=== PATIENT | female | born 1960 | race Caucasian/White ===

== ENCOUNTER 2017-07-01 11:37 | Emergency (ER) | payer OTHER ==
[2017-07-01 12:05] VITALS: BMI 20.7
[2017-07-01] MEDS ORDERED: MAG HYDROX/AL HYDROX/SIMETH 30 ML UNIT-DOSE CUP PO ONE (13:48)
[2017-07-01] MEDS ORDERED: SODIUM CHLORIDE 1,000 ML IV STA (13:48)
[2017-07-01] MEDS ORDERED: ONDANSETRON 4 MG/2 ML VIAL IVPB ONE (13:48)
[2017-07-01] MEDS ORDERED: ACETAMINOPHEN 325 MG TABLET (FP) PO ONE (13:49)
[2017-07-01] MEDS ORDERED: FAMOTIDINE IV 20 MG/12 ML VIAL IVPUSH ONE (13:49)
[2017-07-01 14:21] LABS: BASO % 0.2 % (0-2.0); EOS % 0.3 % (0-4.5); HEMOGLOBIN 13.2 GM/dL (10.7-15.3); LYMPH % 23.1 % (8-40); MCH 29.3 pg (25.7-33.7); MCHC 32.2 g/dl (32.0-36.0); MEAN CELL VOLUME 90.8 fl (80-96); MEAN PLT VOLUME 9.9 fl (7.5-11.1); MONO % 10.1 % (3.8-10.2); NEUT % 66.3 % (42.8-82.8); PLATELET COUNT 220 K/MM3 (134-434); RBC 4.51 M/mm3 (3.60-5.2); RDW 13.2 % (11.6-15.6); WHITE BLOOD COUNT 4.9 K/mm3 (4.0-10.0)
[2017-07-01] MEDS ORDERED: MAG HYDROX/AL HYDROX/SIMETH 30 ML UNIT-DOSE CUP ONE (14:36)
[2017-07-01] MEDS ORDERED: FAMOTIDINE 20 MG/50 ML IVPB 20 MG/50 ML MG IVPB ONE (14:36)
[2017-07-01] MEDS ORDERED: ACETAMINOPHEN 325 MG TABLET (FP) ONE (14:36)
[2017-07-01] MEDS ORDERED: ONDANSETRON 4 MG/2 ML VIAL ONE (14:36)
[2017-07-01 14:42] LABS: INR 1.11 (0.82-1.09); PROTHROMBIN TIME (PATIENT) 12.5 SEC (9.98-11.88)
[2017-07-01 14:45] LABS: ACTIVATED PTT 40.3 SECONDS (26.9-34.4)
--- NOTE | 2017-07-01 14:48 | PDOC ---
History of Present Illness - General Exam Limitations: No Limitations - History of Present Illness Initial Comments: 07/01/17 15:27 The patient is a year old female, with a significant past medical history of hypothyroidism and GERD, who presents to the emergency department with, two days of abdominal pain, emesis, and loose stool. She reports her pain to have begun after eating sushi. She describes her abdominal pain as an intense achy, cramp which waxes and wanes. She reports decreased oral intake. She reports 3 episodes of large volume emesis. Secondary to her symptoms, she reports a subjective fever. She reports taking TUMS, without relief. She denies recent chills, headache or dizziness. She denies recent constipation. She denies recent dysuria, frequency, urgency or hematuria. She denies recent chest pain or shortness of breath. Allergies: NKA Past surgical history: None reported. Social history: Nonsmoker. Denies EtOH use and recreational drug use. Primary Care Physician: Dr. Barby Mckeon <Willem Santana - Last Filed: 07/01/17 15:26> - General History Source: Patient Exam Limitations: No Limitations <Pineda Smith - Last Filed: 07/01/17 16:11> - General Chief Complaint: Pain Stated Complaint: FEVER,ABD PAIN Time Seen by Provider: 07/01/17 13:20 Past History <Willem Santana - Last Filed: 07/01/17 15:26> - Past Medical History COPD: No Thyroid Disease: Yes - Surgical History Appendectomy: Yes - Suicide/Smoking/Psychosocial Hx Smoking Status: No Smoking History: Never smoked Have you smoked in the past 12 months: No Number of Cigarettes Smoked Daily: 0 Hx Alcohol Use: Yes (SOCIAL) Drug/Substance Use Hx: No Substance Use Type: None <Pineda Smith - Last Filed: 07/01/17 16:11> - Past Medical History Allergies/Adverse Reactions: Allergies Allergy/AdvReac Type Severity Reaction Status Date / Time No Known Allergies Allergy Verified 07/01/17 12:05 Home Medications: Ambulatory Orders Levothyroxine [Synthroid -] 100 mcg PO DAILY 07/26/15 Famotidine [Pepcid] 20 mg PO BID PRN #20 tablet 07/01/17 Mag Hydrox/Al Hydrox/Simeth [Mylanta Suspension -] 30 ml PO Q6H PRN #1 bottle Naproxen 500 mg PO BID PRN #20 tablet 07/01/17 Ondansetron HCl [Zofran] 4 mg PO Q8H PRN #15 tablet 07/01/17 Review of Systems - Review of Systems Able to Perform ROS?: Yes Comments:: 07/01/17 15:27 GENERAL/CONSTITUTIONAL: +Subjective fever. No chills. No weakness. HEAD, EYES, EARS, NOSE AND THROAT: No change in vision. No ear pain or discharge. No sore throat. CARDIOVASCULAR: No chest pain or shortness of breath. RESPIRATORY: No cough, wheezing, or hemoptysis. GASTROINTESTINAL: +Epigastric tenderness. +Emesis. No nausea, diarrhea or constipation. GENITOURINARY: No dysuria, frequency, or change in urination. MUSCULOSKELETAL: No joint or muscle swelling or pain. No neck or back pain. SKIN: No rash NEUROLOGIC: No headache, vertigo, loss of consciousness, or change in strength/ sensation. ENDOCRINE: No increased thirst. No abnormal weight change. HEMATOLOGIC/LYMPHATIC: No anemia, easy bleeding, or history of blood clots. ALLERGIC/IMMUNOLOGIC: No hives or skin allergy. All Other Systems: Reviewed and Negative <Willem Santana - Last Filed: 07/01/17 15:26> *Physical Exam - Vital Signs Last Vital Signs Temp Pulse Resp BP Pulse Ox 99.0 F 87 20 115/68 99 07/01/17 12:02 07/01/17 12:02 07/01/17 12:02 07/01/17 12:02 07/01/17 12:02 - Physical Exam Comments: 07/01/17 15:27 GENERAL: Awake, alert, and fully oriented, in no acute distress HEAD: No signs of trauma EYES: PERRLA, EOMI, sclera anicteric, conjunctiva clear ENT: Auricles normal inspection, hearing grossly normal, nares patent, oropharynx clear without exudates. Moist mucosa NECK: Normal ROM, supple, no lymphadenopathy, JVD, or masses LUNGS: Breath sounds equal, clear to auscultation bilaterally. No wheezes, and no crackles HEART: Regular rate and rhythm, normal S1 and S2, no murmurs, rubs or gallops ABDOMEN: +Epigastric tenderness. Soft, normoactive bowel sounds. No guarding, no rebound. No masses EXTREMITIES: Normal range of motion, no edema. No clubbing or cyanosis. No cords, erythema, or tenderness NEUROLOGICAL: Cranial nerves II through XII grossly intact. Normal speech, normal gait SKIN: Warm, Dry, normal turgor, no rashes or lesions noted. <Willem Santana - Last Filed: 07/01/17 15:26> - Vital Signs Last Vital Signs Temp Pulse Resp BP Pulse Ox 99.0 F 87 20 115/68 99 07/01/17 12:02 07/01/17 12:02 07/01/17 12:02 07/01/17 12:02 07/01/17 12:02 <Pineda Smith - Last Filed: 07/01/17 16:11> ED Treatment Course - LABORATORY CBC & Chemistry Diagram: 07/01/17 14:13 07/01/17 14:13 - ADDITIONAL ORDERS Additional order review: Laboratory Results 07/01/17 07/01/17 14:13 14:13 PT with INR 12.50 H INR 1.11 PTT (Actin FS) 40.3 H Sodium 139 Potassium 4.0 Chloride 102 Carbon Dioxide 27 Anion Gap 10 BUN 10 Creatinine 0.6 Creat Clearance w eGFR > 60 Random Glucose 107 H Calcium 8.4 L Phosphorus 3.8 Magnesium 2.2 Total Bilirubin 0.4 D AST 17 D ALT 19 Alkaline Phosphatase 93 Creatine Kinase 55 Troponin I < 0.02 Total Protein 7.7 Albumin 4.0 Lipase 82 07/01/17 14:13 RBC 4.51 MCV 90.8 MCHC 32.2 RDW 13.2 MPV 9.9 Neutrophils % 66.3 Lymphocytes % 23.1 D Monocytes % 10.1 D Eosinophils % 0.3 D Basophils % 0.2 - Medications Given in the ED: ED Medications Discontinued Medications Generic Name Dose Route Start Last Admin Trade Name Freq PRN Reason Stop Dose Admin Acetaminophen 650 mg 07/01/17 13:49 07/01/17 14:45 Tylenol - PO 07/01/17 13:50 650 mg ONCE ONE Administration Al Hydroxide/Mg Hydroxide 30 ml 07/01/17 13:48 07/01/17 14:45 Mylanta Oral Suspension - PO 07/01/17 13:49 30 ml ONCE ONE Administration Famotidine 20 mg in 12 mls @ 144 mls/hr 07/01/17 13:49 07/01/17 14:45 Pepcid 20 Mg/12 Ml Push IVPUSH 07/01/17 13:53 144 mls/hr ONCE ONE Administration Sodium Chloride 1,000 mls @ 1,000 mls/hr 07/01/17 13:48 07/01/17 14:45 Normal Saline - IV 07/01/17 14:47 1,000 mls/hr ASDIR STA Administration Ondansetron HCl 4 mg 07/01/17 13:48 07/01/17 14:45 Zofran Injection IVPB 07/01/17 13:49 4 mg ONCE ONE Administration <Willem Santana - Last Filed: 07/01/17 15:26> - LABORATORY CBC & Chemistry Diagram: 07/01/17 14:13 07/01/17 14:13 - ADDITIONAL ORDERS Additional order review: 07/01/17 14:13 RBC 4.51 MCV 90.8 MCHC 32.2 RDW 13.2 MPV 9.9 Neutrophils % 66.3 Lymphocytes % 23.1 D Monocytes % 10.1 D Eosinophils % 0.3 D Basophils % 0.2 <Pineda Smith - Last Filed: 07/01/17 16:11> Medical Decision Making - Medical Decision Making 07/01/17 14:41 A portion of this note was documented by scribe services under my direction. I have reviewed the details of the note, within reason, and agree with the documentation with the following case summary and management plan written by me. Patient treated in the ED. Nursing notes are reviewed and incorporated into the medical decision-making. Vital signs reviewed. Peripheral IV access obtained by the nurse, laboratory studies are drawn and sent, reviewed and interpreted by myself. Vital Signs Temp Pulse Resp BP Pulse Ox 99.0 F 87 20 115/68 99 07/01/17 12:02 07/01/17 12:02 07/01/17 12:02 07/01/17 12:02 07/01/17 12:02 57-year-old female with history of GERD, hypothyroidism, proximal atrial fibrillation presents with abdominal discomfort, cramping and nausea and vomiting. The patient reports that she has eaten sushi 2 days ago when her symptoms started yesterday. Reports decreased appetite. Denies fevers or chills. I suspect the patient likely has viral gastroenteritis versus food poisoning. We 'll obtain labs, IV fluids, symptom control and reassess. 07/01/17 16:06 CBC, BMP 07/01/17 14:13 07/01/17 14:13 CMP Sodium 139 mmol/L (136-145) 07/01/17 14:13 Potassium 4.0 mmol/L (3.5-5.1) 07/01/17 14:13 Chloride 102 mmol/L (98-107) 07/01/17 14:13 Carbon Dioxide 27 mmol/L (21-32) 07/01/17 14:13 Anion Gap 10 (8-16) 07/01/17 14:13 BUN 10 mg/dL (7-18) 07/01/17 14:13 Creatinine 0.6 mg/dL (0.55-1.02) 07/01/17 14:13 Creat Clearance w eGFR > 60 (>60) 07/01/17 14:13 Random Glucose 107 mg/dL (74-106) H 07/01/17 14:13 Calcium 8.4 mg/dL (8.5-10.1) L 07/01/17 14:13 Phosphorus 3.8 mg/dL (2.5-4.9) 07/01/17 14:13 Magnesium 2.2 mg/dL (1.8-2.4) 07/01/17 14:13 Total Bilirubin 0.4 mg/dL (0.2-1.0) D 07/01/17 14:13 AST 17 U/L (15-37) D 07/01/17 14:13 ALT 19 U/L (12-78) 07/01/17 14:13 Alkaline Phosphatase 93 U/L (45-117) 07/01/17 14:13 Creatine Kinase 55 IU/L (26-192) 07/01/17 14:13 Troponin I < 0.02 ng/ml (0.00-0.05) 07/01/17 14:13 Total Protein 7.7 g/dl (6.4-8.2) 07/01/17 14:13 Albumin 4.0 g/dl (3.4-5.0) 07/01/17 14:13 Lipase 82 U/L (73-393) 07/01/17 14:13 Urine Test Results Urine Color Ltyellow 07/01/17 15:07 Urine Appearance Clear 07/01/17 15:07 Urine pH 6.0 (5.0-8.0) 07/01/17 15:07 Ur Specific [place] 1.008 (1.001-1.035) 07/01/17 15:07 Urine Protein Negative (NEGATIVE) 07/01/17 15:07 Urine Glucose (UA) Negative (NEGATIVE) 07/01/17 15:07 Urine Ketones Negative (NEGATIVE) 07/01/17 15:07 Urine Blood 1+ (NEGATIVE) H 07/01/17 15:07 Urine Nitrite Negative (NEGATIVE) 07/01/17 15:07 Urine Bilirubin Negative (NEGATIVE) 07/01/17 15:07 Ur Leukocyte Esterase Negative (NEGATIVE) 07/01/17 15:07 Ur Epithelial Cells Rare /HPF (FEW) 07/01/17 15:07 Urine Mucus Rare 07/01/17 15:07 Patient reports feeling significantly better. I suspect again that this is likely viral gastritis versus food poisoning. Supportive care and follow-up primary care physician. I discussed the physical exam findings, ancillary test results and final diagnoses with the patient. I answered all of the patient's questions. The patient was satisfied with the care received and felt comfortable with the discharge plan and treatment plan. The patient will call their primary care physician within 24 hours to arrange follow-up and will return to the Emergency Department with any new, persistant or worsening symptoms. <Pineda Smith - Last Filed: 07/01/17 16:11> *DC/Admit/Observation/Transfer - Attestations Scribe Attestion: 07/01/17 15:27 Documentation prepared by Willem Santana, acting as biomedical equipment technician for iPneda Smith MD. <Willem Santana - Last Filed: 07/01/17 15:26> - Discharge Dispostion Admit: No <Pineda Smith - Last Filed: 07/01/17 16:11> Diagnosis at time of Disposition: Gastroenteritis - Discharge Dispostion Disposition: HOME Condition at time of disposition: Improved - Prescriptions Prescriptions: Famotidine [Pepcid] 20 mg PO BID PRN #20 tablet PRN Reason: Abdominal Pain Mag Hydrox/Al Hydrox/Simeth [Mylanta Suspension -] 30 ml PO Q6H PRN #1 bottle PRN Reason: Abdominal Pain Naproxen 500 mg PO BID PRN #20 tablet PRN Reason: Abdominal Pain/Fever Ondansetron HCl [Zofran] 4 mg PO Q8H PRN #15 tablet PRN Reason: Nausea - Referrals Referrals: Barby Mckeon MD [Primary Care Provider] - - Patient Instructions Printed Discharge Instructions: DI for Viral Gastroenteritis -- Adult Additional Instructions: Please drink plenty of fluids and follow up with your doctor. Take your medications as prescribed. It may take several days before your symptoms improve. - Post Discharge Activity Forms/Work/School Notes: Back to Work
[2017-07-01 14:53] LABS: ANION GAP 10 (8-16); BILIRUBIN,TOTAL 0.4 mg/dL (0.2-1.0); BLOOD UREA NITROGEN 10 mg/dL (7-18); CALCIUM 8.4 mg/dL (8.5-10.1); CHLORIDE 102 mmol/L (98-107); CO2 27 mmol/L (21-32); CREATININE 0.6 mg/dL (0.55-1.02); GLUCOSE,RANDOM 107 mg/dL (74-106); LIPASE 82 U/L (73-393); MAGNESIUM 2.2 mg/dL (1.8-2.4); PHOSPHOROUS 3.8 mg/dL (2.5-4.9); SGOT/AST 17 U/L (15-37); SGPT/ALT 19 U/L (12-78); SODIUM 139 mmol/L (136-145)
[2017-07-01 14:56] LABS: ALK PHOS 93 U/L (45-117); TOT PROT 7.7 g/dl (6.4-8.2)
[2017-07-01] MEDS ORDERED: KETOROLAC TROMETHAMINE 30 MG/1 ML VIAL IVPUSH ONE (14:57)
[2017-07-01] MEDS ORDERED: KETOROLAC TROMETHAMINE 30 MG/1 ML VIAL ONE (15:50)
[2017-07-01 15:52] LABS: URINE APPEARANCE CLEAR; URINE BILIRUBIN NEGATIVE (NEGATIVE); URINE BLOOD 1+ (NEGATIVE); URINE COLOR LTYELLOW; URINE GLUCOSE (UA) NEGATIVE (NEGATIVE); URINE KETONE NEGATIVE (NEGATIVE); URINE LEUK ESTERASE NEGATIVE (NEGATIVE); URINE NITRITE NEGATIVE (NEGATIVE); URINE PROTEIN NEGATIVE (NEGATIVE); URINE UROBILINOGEN NEGATIVE mg/dL (0.2-1.0)
[2017-07-01 15:57] LABS: EPI CELLS RARE /HPF (FEW); URINE MUCUS RARE
[2017-07-01 16:32] VITALS: BP 129/89; PULSE 81; TEMP 98.1
== END 2017-07-01 16:32 | disposition home or self-care (01) ==
LOC: JER 11:37
PROC: 3E033GC Introduction of Other Therapeutic Substance into Peripheral Vein, Percutaneous Approach (ICD-10-PCS; principal; 2017-07-01)
PROC: 3E033GC Introduction of Other Therapeutic Substance into Peripheral Vein, Percutaneous Approach (ICD-10-PCS; 2017-07-01)
PROC: 3E0333Z Introduction of Anti-inflammatory into Peripheral Vein, Percutaneous Approach (ICD-10-PCS; 2017-07-01)
DX: K52.9 Noninfective gastroenteritis and colitis, unspecified (principal)
CPT/HCPCS: 36415; 80053; 81003; 81015; 82550; 83690; 83735; 84100; 84484; 85025; 85610; 85730; 87086; 96374; 96375; 99284-25

== ENCOUNTER 2019-07-07 16:29 | Emergency (ER) | payer OTHER ==
--- NOTE | 2019-07-07 16:34 | PDOC ---
Rapid Medical Evaluation Time Seen by Provider: 07/07/19 16:33 Medical Evaluation: Allergies Allergy/AdvReac Type Severity Reaction Status Date / Time No Known Allergies Allergy Verified 07/07/19 16:33 07/07/19 16:34 I performed a brief in-person evaluation of this patient. 59-year-old female with paF (not on AC), HLD, hypothyroidism with 4 days of near right eye not improving with antibiotic ointment, now with pressure sensation and ringing in right ear. Pertinent physical exam findings. PERRL, EOMI. No ophthalmoplegia. Small area of erythema at bridge of nose just medial to right eye I have ordered the following: None Patient to proceed to FT for further evaluation. Discharge Disposition - Diagnosis Cellulitis - Referrals - Patient Instructions - Post Discharge Activity
[2019-07-07 16:37] VITALS: BP 144/68; PULSE 81; TEMP 98.2; BMI 21.9
--- NOTE | 2019-07-07 17:49 | PDOC ---
History of Present Illness - General Chief Complaint: Pain, Acute Stated Complaint: PAIN/FACE/EYES/HEADACHE/R/EAR Time Seen by Provider: 07/07/19 16:33 - History of Present Illness Initial Comments: 07/07/19 17:46 59-year-old female presents for facial pain and developing rash x3 days Past History - Past Medical History Allergies/Adverse Reactions: Allergies Allergy/AdvReac Type Severity Reaction Status Date / Time No Known Allergies Allergy Verified 07/07/19 16:33 Home Medications: Ambulatory Orders Levothyroxine [Synthroid -] 100 mcg PO DAILY 07/26/15 Naproxen 500 mg PO BID PRN #20 tablet 07/01/17 Atorvastatin Ca [Lipitor] 20 mg PO HS 12/13/17 Atorvastatin Calcium [Lipitor] 20 mg PO HS 04/13/19 Cholecalciferol (Vitamin D3) [Vitamin D3] 1 tab PO DAILY 04/13/19 Cyclobenzaprine HCl 5 mg PO TID PRN #6 tablet 04/13/19 Levothyroxine [Synthroid -] 100 mcg PO DAILY 04/13/19 Lidocaine 5% Patch [Lidoderm -] 1 patch TP DAILY #7 patch 04/13/19 Acyclovir [Zovirax -] 800 mg PO 5XD #35 tablet 07/07/19 Cardiac Disorders: Yes (afib) CVA: No COPD: No GI Disorders: Yes (gerd) Hypercholesterolemia: Yes Thyroid Disease: Yes (hypothyroid) - Surgical History Appendectomy: Yes - Immunization History Immunization Up to Date: No - Psycho Social/Smoking Cessation Hx Smoking Status: No Smoking History: Never smoked Have you smoked in the past 12 months: No Number of Cigarettes Smoked Daily: 0 Hx Alcohol Use: No Drug/Substance Use Hx: No Substance Use Type: None Review of Systems - Review of Systems Constitutional: No: Fever Integumentary: Yes: Rash *Physical Exam - Vital Signs Last Vital Signs Temp Pulse Resp BP Pulse Ox 98.2 F 81 18 144/68 99 07/07/19 16:34 07/07/19 16:34 07/07/19 16:34 07/07/19 16:34 07/07/19 16:34 - Physical Exam 07/07/19 17:47 GENERAL: The patient is awake, alert, and fully oriented, in no acute distress. HEAD: Normal with no signs of trauma. EYES: sclera anicteric, conjunctiva clear. ENT: Ears normal tympanic membranes normal oropharynx clear uvula midline; there is a vesicular lesion in the right ear canal NECK: Normal range of motion LUNGS: Breath sounds equal, clear to auscultation bilaterally. No wheezes, and no crackles. HEART: S1 and S2 without murmur, rub or gallop. ABDOMEN: Soft, nontender, normoactive bowel sounds. No guarding, no rebound. No masses. EXTREMITIES: Normal range of motion, no edema. No clubbing or cyanosis. No cords, erythema, or tenderness. NEUROLOGICAL: Cranial nerves II through XII grossly intact. Normal speech, normal gait. PSYCH: Normal mood, normal affect. SKIN: Warm, Dry, normal turgor, there is a vesicular lesion on the right side of the bridge of the nose and a developing lesion at the base of the nose on the right. Medical Decision Making - Medical Decision Making 07/07/19 17:47 This appears to be developing shingles will treat with acyclovir follow-up with primary care physician Discharge - Discharge Information Problems reviewed: Yes Clinical Impression/Diagnosis: Shingles Clinical Impression/Diagnosis: (Ruled Out): Cellulitis Condition: Stable Disposition: HOME - Admission No - Additional Discharge Information Prescriptions: Acyclovir [Zovirax -] 800 mg PO 5XD #35 tablet - Follow up/Referral Referrals: Barby Mckeon MD [Primary Care Provider] - - Patient Discharge Instructions Patient Printed Discharge Instructions: Shingles, DI for Shingles Additional Instructions: Please take the acyclovir as directed return to the emergency room for worsening symptoms Tylenol and Motrin for pain as directed. Follow-up with your primary care physician in 1 to 2 days for further evaluation and treatment options. - Post Discharge Activity Work/Back to School Note: Back to Work
== END 2019-07-07 17:53 | disposition home or self-care (01) ==
LOC: JERFT 16:29
DX: B02.9 Zoster without complications (principal); I48.91 Unspecified atrial fibrillation; E03.9 Hypothyroidism, unspecified; K21.9 Gastro-esophageal reflux disease without esophagitis; E78.00 Pure hypercholesterolemia, unspecified
CPT/HCPCS: 99281-25

== ENCOUNTER 2020-01-05 17:11 | Emergency (ER) | payer OTHER ==
[2020-01-05 17:20] VITALS: BP 124/76; PULSE 103; TEMP 98.9; BMI 22.3
--- NOTE | 2020-01-05 17:22 | PDOC ---
Rapid Medical Evaluation Medical Evaluation: Allergies Allergy/AdvReac Type Severity Reaction Status Date / Time No Known Allergies Allergy Verified 07/07/19 16:33 01/05/20 17:15 59 yo F h/o hypothyroidism, afib on asa sent by pmd c/o painful bruising after warm water pressure massage 7 days ago. went to pmd twice in 1 week, sent by pmd for hematology referral. initially had fever tmax 102.6 4 days ago. completed azithromycin course for URI symptoms 2 weeks ago. tested neg for covid 3 days ago. dark stools 2 weeks ago. denies cp, sob, abd pain. VSS bruising noted to b/ LE and UE b/l LE swelling A/P: ecchymotic painless rash sent by pmd labs
[2020-01-05 18:02] LABS: BASO % 0.2 % (0-2.0); EOS % 5.6 % (0-4.5); HEMATOCRIT 33.6 % (32.4-45.2); LYMPH % 17.8 % (8-40); MCH 30.2 pg (25.7-33.7); MCHC 32.9 g/dl (32.0-36.0); MEAN CELL VOLUME 91.8 fl (80-96); MEAN PLT VOLUME 9.2 fl (7.5-11.1); MONO % 5.4 % (3.8-10.2); PLATELET COUNT 301 K/MM3 (134-434); RBC 3.66 M/mm3 (3.60-5.2); RDW 13.4 % (11.6-15.6); WHITE BLOOD COUNT 11.1 K/mm3 (4.0-10.0)
--- NOTE | 2020-01-05 18:06 | PDOC ---
History of Present Illness - General Chief Complaint: Wound Stated Complaint: SENT BY DOCTOR Time Seen by Provider: 01/05/20 17:34 - History of Present Illness Initial Comments: 01/05/20 18:02 59-year-old female with a past medical history of hypothyroidism presents for evaluation of painful bruises on her shins and right elbow x7 days. She used an aggressive shallow massager which may have caused the bruises. She also compl ains of fever at home. Past History - Medical History Allergies/Adverse Reactions: Allergies Allergy/AdvReac Type Severity Reaction Status Date / Time No Known Allergies Allergy Verified 01/05/20 17:20 Home Medications: Ambulatory Orders Levothyroxine [Synthroid -] 100 mcg PO DAILY 07/26/15 Naproxen 500 mg PO BID PRN #20 tablet 07/01/17 Atorvastatin Ca [Lipitor] 20 mg PO HS 12/13/17 Atorvastatin Calcium [Lipitor] 20 mg PO HS 04/13/19 Cholecalciferol (Vitamin D3) [Vitamin D3] 1 tab PO DAILY 04/13/19 Cyclobenzaprine HCl 5 mg PO TID PRN #6 tablet 04/13/19 Levothyroxine [Synthroid -] 100 mcg PO DAILY 04/13/19 Lidocaine 5% Patch [Lidoderm -] 1 patch TP DAILY #7 patch 04/13/19 Acyclovir [Zovirax -] 800 mg PO 5XD #35 tablet 07/07/19 Cephalexin [Keflex] 500 mg PO QID #40 capsule 01/05/20 Sulfamethoxazole/Trimethoprim [Bactrim Ds -] 1 tab PO BID #14 tablet 01/05/20 Cardiac Disorders: Yes (afib) CVA: No COPD: No GI Disorders: Yes (gerd) Hypercholesterolemia: Yes Thyroid Disease: Yes (hypothyroid) - Surgical History Appendectomy: Yes - Immunization History Immunization Up to Date: No - Psycho-Social/Smoking History Smoking Status: No Smoking History: Never smoked Have you smoked in the past 12 months: No Number of Cigarettes Smoked Daily: 0 Information on smoking cessation initiated: No - Substance Abuse Hx (Audit-C & DAST Scrn) How often the patient has a drink containing alcohol: Never Score: In Men: 4 or > Positive; In Women: 3 or > Positive: 0 Screen Result (Pos requires Nsg. Audit-10AR): Negative Review of Systems - Review of Systems Constitutional: Yes: Fever, Malaise. No: Chills, Night Sweats Hematologic/Lymphatic: Yes: See HPI *Physical Exam - Vital Signs Last Vital Signs Temp Pulse Resp BP Pulse Ox 98.9 F 103 H 18 124/76 100 01/05/20 17:14 01/05/20 17:14 01/05/20 17:14 01/05/20 17:14 01/05/20 17:14 - Physical Exam 01/05/20 18:03 GENERAL: The patient is awake, alert, and fully oriented, in no acute distress. HEAD: Normal with no signs of trauma. EYES: sclera anicteric, conjunctiva clear. ENT: Ears normal tympanic membranes normal oropharynx clear uvula midline NECK: Normal range of motion LUNGS: Breath sounds equal, clear to auscultation bilaterally. No wheezes, and no crackles. HEART: S1 and S2 without murmur, rub or gallop. ABDOMEN: Soft, nontender, normoactive bowel sounds. No guarding, no rebound. No masses. EXTREMITIES: Normal range of motion, no edema. No clubbing or cyanosis. No cords, erythema, or tenderness. NEUROLOGICAL: Cranial nerves II through XII grossly intact. PSYCH: Normal mood, normal affect. SKIN: Warm, Dry, normal turgor, there is a circumferential erythemic area on the posterior aspect of the right elbow without an effusion or induration. Mild warmth and erythema no pain with passive motion of the elbow full supination and pronation without discomfort. Multiple bruises on the anterior aspects of both shins about the distal third bilateral thighs and calves are soft and nontender no pain with passive motion of the ankle and toes in all directions. There are 3 circumferential small areas of erythema on the posterior aspect of the left forearm. No indication of infection no induration fluctuance or sensitivity. ED Treatment Course - LABORATORY CBC & Chemistry Diagram: 01/05/20 17:41 01/05/20 17:41 Medical Decision Making - Medical Decision Making 01/05/20 18:04 I will refer patient back to her primary care physician. Of note she is on a course of Zithromax which I will discontinue and have her start Bactrim and Keflex for her right elbow I believe this is a superficial cellulitis. There is no indication of DVT compartment syndrome or clots in her lower extremities. She may have a cellulitis of the right elbow. The sauceda on her left forearm appear to be bug bites. I have reviewed the pathophysiology with the patient. They are in agreement with the treatment plan all questions were answered to their satisfaction. Understanding for follow-up without fail was also conveyed to the patient. Again they are in agreement. No extensive emergency room work-up needs to be done today. Discharge - Discharge Information Problems reviewed: Yes Clinical Impression/Diagnosis: Cellulitis Condition: Stable Disposition: HOME - Admission No - Additional Discharge Information Prescriptions: Sulfamethoxazole/Trimethoprim [Bactrim Ds -] 1 tab PO BID #14 tablet Cephalexin [Keflex] 500 mg PO QID #40 capsule - Follow up/Referral Referrals: Barby Mckeon MD [Primary Care Provider] - - Patient Discharge Instructions Additional Instructions: Tylenol and Motrin as directed for pain. Please discontinue the Zithromax and start the Bactrim and Keflex and take that as directed. Return to the emergency room for worsening symptoms and without fail follow-up with your primary care physician in 1 to 2 days for further evaluation and treatment options. - Post Discharge Activity
[2020-01-05 18:12] LABS: INR 1.08 (0.83-1.09); PROTHROMBIN TIME (PATIENT) 12.7 SEC (9.7-13.0)
[2020-01-05 18:15] LABS: ACTIVATED PTT 39.4 SECONDS (25.2-36.5); EPI CELLS 32 /uL (0-25.1); HYALINE CASTS 6 /uL (0-3.1); URINE APPEARANCE CLEAR; URINE BACTERIA 33 /uL (0-1359); URINE BILIRUBIN NEGATIVE (NEGATIVE); URINE COLOR DK YELLOW; URINE GLUCOSE (UA) NEGATIVE (NEGATIVE); URINE KETONE NEGATIVE (NEGATIVE); URINE LEUK ESTERASE 1+ (NEGATIVE); URINE NITRITE NEGATIVE (NEGATIVE); URINE PROTEIN 1+ (NEGATIVE); URINE WBC 97 /uL (0-25.8)
[2020-01-05 18:35] LABS: ALBUMIN 3.5 g/dl (3.4-5.0); BILIRUBIN,TOTAL 0.3 mg/dL (0.2-1); BLOOD UREA NITROGEN 20.2 mg/dL (7-18); CALCIUM 8.6 mg/dL (8.5-10.1); CREATININE 0.9 mg/dL (0.55-1.3); MAGNESIUM 2.7 mg/dL (1.8-2.4); POTASSIUM 4.4 mmol/L (3.5-5.1); TOT PROT 7.1 g/dl (6.4-8.2)
[2020-01-05 19:18] LABS: URINE RBC 87.8 /uL (0-23.9)
[2020-01-05 19:22] LABS: YEAST NEGATIVE (NEGATIVE)
== END 2020-01-05 18:30 | disposition home or self-care (01) ==
LOC: JER 17:11
DX: L03.113 Cellulitis of right upper limb (principal)
CPT/HCPCS: 36415; 80053; 81003; 82550; 83735; 85025; 85610; 85730; 87086; 99283-25

== ENCOUNTER 2020-01-07 15:44 | Emergency (ER) | payer OTHER ==
--- NOTE | 2020-01-07 15:53 | PDOC ---
Rapid Medical Evaluation Time Seen by Provider: 01/07/20 15:48 Medical Evaluation: Allergies Allergy/AdvReac Type Severity Reaction Status Date / Time No Known Allergies Allergy Verified 01/05/20 17:20 01/07/20 15:51 I have performed a brief in-person evaluation of this patient. The patient presents with a chief complaint of: Seen 2 days ago for erythema/warmth to b/l LE and R elbow after pt states she used a ?massager at home. Was dc on bactrim and keflex mostly for ? cellulitis to R elbow. B/l lesions deemed to be ? bug bites per records. Of note, labs were neg on last visit. Returns w/ worsening swelling to L ankle and states condition has not improved at all in general. No itching, f/c Pertinent physical exam findings:multiple erythematous patches and plaques overlying R knee, b/l [place] and b/l ankle w/ moderate swelling to L mal of L ankle I have ordered the following:nothing The patient will proceed to the ED for further evaluation. Discharge Disposition - Diagnosis Rash and nonspecific skin eruption - Referrals - Patient Instructions - Post Discharge Activity
[2020-01-07 15:56] VITALS: BMI 22.3
--- NOTE | 2020-01-07 17:52 | PDOC ---
History of Present Illness - General Chief Complaint: Redness To Affected Area Stated Complaint: R/O INFECTION Time Seen by Provider: 01/07/20 15:48 History Source: Patient, Old Records Exam Limitations: No Limitations - History of Present Illness Initial Comments: 01/07/20 18:18 HISTORY OF PRESENT ILLNESS: 59-year-old woman past medical history of A. fib (taking aspirin), hyperlipidemia and hypothyroidism who presents emergency department for evaluation of continued lower extremity bruising for which she was evaluated here in this emergency department 01/04. At that time patient was treated for superficial cellulitis using Bactrim and Keflex patient reports her symptoms have improved slightly but is concerned that she still has the bruises. Patient was in touch with her primary doctor today due to her virtual visit recommended she return to the emergency department for reevaluation. Patient denies any active bleeding or pain at this time. No recent travel or sick contacts. PAST MEDICAL HISTORY: See HPI SURGICAL HISTORY: Denies ALLERGIES: No known drug allergies REVIEW OF SYSTEMS General/Constitutional: Denies fever or chills. Denies weakness, weight change. HEENT: Denies change in vision. Denies ear pain or discharge. Denies sore throat. Cardiovascular: Denies chest pain or shortness of breath. Respiratory: Denies cough, wheezing, or hemoptysis. Gastrointestinal: Denies nausea, vomiting, diarrhea or constipation. Denies rectal bleeding. Genitourinary: Denies dysuria, frequency, or change in urination. Musculoskeletal: Denies joint or muscle swelling or pain. Denies neck or back pain. Skin and breasts: See HPI Neurologic: Denies headache, vertigo, loss of consciousness, or loss of sensation. Psychiatric: Denies depression or anxiety. Endocrine: Denies increased thirst. Denies abnormal weight change. Hematologic/Lymphatic: Denies anemia, easy bleeding, or history of blood clots. Allergic/Immunologic: Denies hives or skin allergy. Denies latex allergy. PHYSICAL EXAM General Appearance: Well-appearing, appropriately dressed. No apparent distress, no intoxication. HEENT: EOMI, PERRLA, normal ENT inspection, normal voice, TMs normal, pharynx normal. No conjunctival pallor. No photophobia, scleral icterus. Gastrointestinal/Abdominal: Normal bowel sounds. Abdomen soft, non-distended. No tenderness or rebound tenderness. No organomegaly, pulsatile mass, guarding, hernia, hepatomegaly, splenomegaly. Lymphatic: No adenopathy, tenderness. Musculoskeletal/Extremities: Normal inspection. FROM of all extremities, normal capillary refill. Pelvis Stable. No CVA tenderness. No tenderness to extremities, swelling, erythema or deformity. Pedal edema present to LLE. Integumentary: Painless circumferential erythema area on the posterior aspect of the right elbow without an effusion or induration. No warmth. + erythema. Multiple bruises on the anterior aspects of both lower legs. Calves are soft and nontender no pain with passive motion of the ankle and toes in all directions. There are 3 circumferential small areas of erythema on the posterior aspect of the left forearm. No indication of infection no induration fluctuance or sensitivity. 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 Fully oriented, alert. Appropriate mood/affect. Motor strength 5/5. No appreciable EOM palsy, facial droop or sensory deficit. 01/07/20 18:41 01/07/20 18:45 Past History - Medical History Allergies/Adverse Reactions: Allergies Allergy/AdvReac Type Severity Reaction Status Date / Time No Known Allergies Allergy Verified 01/07/20 15:52 Home Medications: Ambulatory Orders Levothyroxine [Synthroid -] 100 mcg PO DAILY 07/26/15 Naproxen 500 mg PO BID PRN #20 tablet 07/01/17 Atorvastatin Ca [Lipitor] 20 mg PO HS 12/13/17 Atorvastatin Calcium [Lipitor] 20 mg PO HS 04/13/19 Cholecalciferol (Vitamin D3) [Vitamin D3] 1 tab PO DAILY 04/13/19 Cyclobenzaprine HCl 5 mg PO TID PRN #6 tablet 04/13/19 Levothyroxine [Synthroid -] 100 mcg PO DAILY 04/13/19 Lidocaine 5% Patch [Lidoderm -] 1 patch TP DAILY #7 patch 04/13/19 Acyclovir [Zovirax -] 800 mg PO 5XD #35 tablet 07/07/19 Cephalexin [Keflex] 500 mg PO QID #40 capsule 01/05/20 Sulfamethoxazole/Trimethoprim [Bactrim Ds -] 1 tab PO BID #14 tablet 01/05/20 Cardiac Disorders: Yes (afib) CVA: No COPD: No GI Disorders: Yes (gerd) Hypercholesterolemia: Yes Thyroid Disease: Yes (hypothyroid) - Surgical History Appendectomy: Yes - Immunization History Immunization Up to Date: No - Psycho-Social/Smoking History Smoking Status: No Smoking History: Never smoked Have you smoked in the past 12 months: No Number of Cigarettes Smoked Daily: 0 - Substance Abuse Hx (Audit-C & DAST Scrn) How often the patient has a drink containing alcohol: Never Score: In Men: 4 or > Positive; In Women: 3 or > Positive: 0 Screen Result (Pos requires Nsg. Audit-10AR): Negative *Physical Exam - Vital Signs Last Vital Signs Temp Pulse Resp BP Pulse Ox 98 F 99 H 18 119/73 98 01/07/20 15:50 01/07/20 15:50 01/07/20 15:50 01/07/20 15:50 01/07/20 15:50 ED Treatment Course - RADIOLOGY Radiology Studies Ordered: Category Date Time Status DUPLEX VASCUL US-1 LEG [US] Stat Ultrasound 01/07/20 17:42 Ordered Medical Decision Making - Medical Decision Making 01/07/20 18:19 A/P: 59-year-old woman with continued bruising and erythema to bilateral lower extremities as well as right elbow Laboratory testing performed on 01/04 as follows: Laboratory Tests 01/05/20 01/05/20 01/05/20 17:41 17:41 17:41 WBC 11.1 H RBC 3.66 Hgb 11.0 Hct 33.6 MCV 91.8 MCH 30.2 MCHC 32.9 RDW 13.4 Plt Count 301 D MPV 9.2 Absolute Neuts (auto) 7.9 Neutrophils % 71.0 D Lymphocytes % 17.8 D Monocytes % 5.4 Eosinophils % 5.6 H D Basophils % 0.2 Nucleated RBC % 0 PT with INR 12.70 INR 1.08 PTT (Actin FS) 39.4 H Sodium Potassium Chloride Carbon Dioxide Anion Gap BUN Creatinine Est GFR (CKD-EPI)AfAm Est GFR (CKD-EPI)NonAf Random Glucose Calcium Magnesium Total Bilirubin AST ALT Alkaline Phosphatase Creatine Kinase Total Protein Albumin Urine Color Dk yellow Urine Appearance Clear Urine pH 8.0 Ur Specific [place] 1.032 Urine Protein 1+ H Urine Glucose (UA) Negative Urine Ketones Negative Urine Blood Negative Urine Nitrite Negative Urine Bilirubin Negative Urine Urobilinogen 1.0 Ur Leukocyte Esterase 1+ H Urine WBC (Auto) 97 Urine RBC (Auto) 87.8 Urine Casts (Auto) 6 U Epithel Cells (Auto) 32 Urine Bacteria (Auto) 33 Urine Yeast (Auto) Negative 01/05/20 17:41 WBC RBC Hgb Hct MCV MCH MCHC RDW Plt Count MPV Absolute Neuts (auto) Neutrophils % Lymphocytes % Monocytes % Eosinophils % Basophils % Nucleated RBC % PT with INR INR PTT (Actin FS) Sodium 144 Potassium 4.4 Chloride 111 H Carbon Dioxide 25 Anion Gap 7 L BUN 20.2 H Creatinine 0.9 Est GFR (CKD-EPI)AfAm 82.26 Est GFR (CKD-EPI)NonAf 70.98 Random Glucose 119 H Calcium 8.6 Magnesium 2.7 H Total Bilirubin 0.3 AST 29 ALT 59 Alkaline Phosphatase 117 Creatine Kinase 49 Total Protein 7.1 Albumin 3.5 Urine Color Urine Appearance Urine pH Ur Specific [place] Urine Protein Urine Glucose (UA) Urine Ketones Urine Blood Urine Nitrite Urine Bilirubin Urine Urobilinogen Ur Leukocyte Esterase Urine WBC (Auto) Urine RBC (Auto) Urine Casts (Auto) U Epithel Cells (Auto) Urine Bacteria (Auto) Urine Yeast (Auto) There is no evidence of thrombocytopenia and coagulation profile was unremarkable. As patient currently has some swelling in her left lower extremity will evaluate with sonogram to rule out DVT. COVID testing Reassess 01/07/20 19:21 Ultrasound is read by Dr. Olivarez: No evidence of deep vein thrombosis. Patient symptoms appear to be resolving on antibiotics patient should continue antibiotics and follow-up with her primary doctor at home. Previous laboratory testing not consistent for acute hematologic disorders can be worked up as an outpatient. I discussed the physical exam findings, ancillary test results and final diagnoses with the patient. I answered all of the patient's questions. The mel ent was satisfied with the care received and felt comfortable with the discharge plan and treatment plan. The patient will call their primary care physician within 24 hours to arrange follow-up and will return to the Emergency Department with any new, persistent or worsening symptoms. Portions of this note have been documented using voice recognition software. As a result, errors may occur in the temp recruiter process. Effort has been made to correct all grammatical and temp recruiter error, but some may have been missed which may produce sporadic inaccurate temp recruiter or nonsensical phrases. Discharge - Discharge Information Problems reviewed: Yes Clinical Impression/Diagnosis: Rash and nonspecific skin eruption Condition: Fair Disposition: HOME - Admission No - Follow up/Referral Referrals: Barby Mckeon MD [Primary Care Provider] - Farzana Guadalupe MD [Staff Physician] - - Patient Discharge Instructions Additional Instructions: Continue previously prescribed antibiotics. Your emergency department visit is incomplete until you follow-up with your primary doctor for continued evaluation. Your laboratory testing the other day did not show any significant abnormalities and your ultrasound today showed no blood clot in your legs. Return to emerge part for any new or worsening symptoms. Thank you very much for choosing us to provide your emergent healthcare needs. - Post Discharge Activity
[2020-01-07 20:02] VITALS: BP 116/75; PULSE 82; TEMP 97.2
== END 2020-01-07 20:02 | disposition home or self-care (01) ==
LOC: JER 15:44
DX: R21 Rash and other nonspecific skin eruption (principal)
CPT/HCPCS: 93971-TC; 99284-25; U0003

== ENCOUNTER 2021-07-08 17:57 | Emergency (ER) | payer OTHER ==
[2021-07-08 18:06] VITALS: BP 133/84; PULSE 74; TEMP 98.7; BMI 24.1
[2021-07-08 18:48] LABS: BASO % 0.6 % (0-2.0); EOS % 1.9 % (0-4.5); HEMATOCRIT 37.9 % (32.4-45.2); HEMOGLOBIN 12.7 GM/dL (10.7-15.3); LYMPH % 41.7 % (8-40); MCHC 33.6 g/dl (32.0-36.0); MEAN CELL VOLUME 89.5 fl (80-96); MEAN PLT VOLUME 8.9 fl (7.5-11.1); NEUT % 50.8 % (42.8-82.8); PLATELET COUNT 238 10^3/uL (134-434); RBC 4.23 M/mm3 (3.60-5.2); RDW 13.4 % (11.6-15.6); WHITE BLOOD COUNT 6.1 K/mm3 (4.0-10.0)
[2021-07-08 19:11] LABS: BLOOD UREA NITROGEN 12.5 mg/dL (7-18); CALCIUM 9.2 mg/dL (8.5-10.1)
[2021-07-08 19:12] LABS: ALBUMIN 4.2 g/dl (3.4-5.0)
[2021-07-08 19:15] LABS: CREATININE 0.6 mg/dL (0.55-1.3)
[2021-07-08 19:16] LABS: BILIRUBIN,TOTAL 0.2 mg/dL (0.2-1); TOT PROT 7.6 g/dl (6.4-8.2)
== END 2021-07-08 21:24 | disposition home or self-care (01) ==
LOC: JERFT 17:57
DX: R07.82 Intercostal pain (principal)
CPT/HCPCS: 36415; 71101-TC-RT-FY; 76705-TC; 80053; 83690; 85025; 99284-25

== ENCOUNTER 2022-09-16 09:57 | Emergency (ER) | payer OTHER ==
[2022-09-16 10:18] VITALS: BMI 21.3
[2022-09-16] MEDS ORDERED: SODIUM CHLORIDE 0.9% 500 ML INFUS.BAG IV ONE (10:38)
[2022-09-16] MEDS ORDERED: ONDANSETRON 4 MG/2 ML VIAL IVPUSH ONE (10:38)
[2022-09-16] MEDS ORDERED: MECLIZINE HCL 25 MG TABLET (FP) PO ONE (10:38)
[2022-09-16] MEDS ORDERED: ONDANSETRON 4 MG/2 ML VIAL ONE (11:06)
[2022-09-16] MEDS ORDERED: MECLIZINE HCL 12.5 MG TABLET ONE (11:06)
[2022-09-16 12:00] LABS: BASO % 0.3 % (0-2.0); EOS % 0.8 % (0-4.5); HEMATOCRIT 38.7 % (32.4-45.2); HEMOGLOBIN 13.2 GM/dL (10.7-15.3); LYMPH % 34.1 % (8-40); MCH 30.4 pg (25.7-33.7); MEAN CELL VOLUME 89.5 fl (80-96); MEAN PLT VOLUME 9.7 fl (7.5-11.1); MONO % 4.4 % (3.8-10.2); NEUT % 60.4 % (42.8-82.8); PLATELET COUNT 214 10^3/uL (134-434); RBC 4.33 M/mm3 (3.60-5.2); RDW 13.7 % (11.6-15.6); WHITE BLOOD COUNT 4.3 K/mm3 (4.0-10.0)
[2022-09-16 12:19] LABS: BLOOD UREA NITROGEN 18.7 mg/dL (7-18); CALCIUM 9.3 mg/dL (8.5-10.1); MAGNESIUM 2.6 mg/dL (1.8-2.4)
[2022-09-16 12:20] LABS: ALBUMIN 4.2 g/dl (3.4-5.0)
[2022-09-16 12:23] LABS: CREATININE 0.5 mg/dL (0.55-1.3)
[2022-09-16 12:24] LABS: BILIRUBIN,TOTAL 0.3 mg/dL (0.2-1); TOT PROT 7.7 g/dl (6.4-8.2)
[2022-09-16 12:34] LABS: EPI CELLS 6 /uL (0-25.1); HYALINE CASTS 1 /uL (0-3.1); PH,URINE 6.5 (5.0-8.0); URINE APPEARANCE CLEAR; URINE BACTERIA 15 /uL (0-1359); URINE BILIRUBIN NEGATIVE (NEGATIVE); URINE COLOR YELLOW; URINE GLUCOSE (UA) NEGATIVE (NEGATIVE); URINE KETONE NEGATIVE (NEGATIVE); URINE LEUK ESTERASE TRACE (NEGATIVE); URINE NITRITE NEGATIVE (NEGATIVE); URINE PROTEIN NEGATIVE (NEGATIVE); URINE RBC 20 /uL (0-23.9); URINE UROBILINOGEN 0.2 mg/dL (0.2-1.0); URINE WBC 14 /uL (0-25.8)
[2022-09-16 12:49] VITALS: PULSE 70; TEMP 98.2
[2022-09-16 13:04] VITALS: BP 136/80; RESP 17
== END 2022-09-16 13:13 | disposition home or self-care (01) ==
LOC: JER 09:57
DX: R42 Dizziness and giddiness (principal); Z20.822 Contact with and (suspected) exposure to COVID-19
CPT/HCPCS: 0241U-QW; 36415; 70450-TC; 80053; 81003; 82962; 83735; 85025; 87086; 93005; 93010; 99285-25

== ENCOUNTER 2022-09-23 10:07 | Inpatient (IN) | payer OTHER ==
[2022-09-23 10:15] VITALS: BMI 20.9
[2022-09-23] MEDS ORDERED: dilTIAZem HCL 50 MG/10 ML - 10 ML VIAL IVPUSH ONE ×5 (10:38→15:30)
[2022-09-23] MEDS ORDERED: dilTIAZem HCL 50 MG/10 ML - 10 ML VIAL ONE (10:41)
[2022-09-23] MEDS ORDERED: dilTIAZem HCL 30 MG TABLET ONE ×2 (10:59→14:45)
[2022-09-23 11:09] LABS: BASO % 0.3 % (0-2.0); EOS % 1.7 % (0-4.5); HEMATOCRIT 36.5 % (32.4-45.2); HEMOGLOBIN 13.2 GM/dL (10.7-15.3); LYMPH % 37.5 % (8-40); MCHC 36.1 g/dl (32.0-36.0); MEAN CELL VOLUME 88.8 fl (80-96); MEAN PLT VOLUME 9.7 fl (7.5-11.1); MONO % 6.4 % (3.8-10.2); NEUT % 54.1 % (42.8-82.8); PLATELET COUNT 228 10^3/uL (134-434); RBC 4.11 M/mm3 (3.60-5.2); RDW 13.5 % (11.6-15.6)
[2022-09-23 11:17] LABS: INR 1.03 (0.83-1.09); PROTHROMBIN TIME (PATIENT) 11.9 SEC (9.7-13.0)
[2022-09-23 11:20] LABS: ACTIVATED PTT 42.8 SECONDS (25.2-36.5)
[2022-09-23] MEDS ORDERED: dilTIAZem HCL 125 MG/25 ML - 25 ML VIAL ONE (11:30)
[2022-09-23] MEDS ORDERED: SODIUM CHLORIDE 0.9% 500 ML INFUS.BAG IV ONE ×2 (11:37→13:01)
[2022-09-23 11:39] LABS: CALCIUM 9.2 mg/dL (8.5-10.1)
[2022-09-23 11:40] LABS: ALBUMIN 4.2 g/dl (3.4-5.0); BLOOD UREA NITROGEN 15.4 mg/dL (7-18)
[2022-09-23 11:43] LABS: CREATININE 0.7 mg/dL (0.55-1.3)
[2022-09-23 11:44] LABS: BILIRUBIN,TOTAL 0.5 mg/dL (0.2-1)
[2022-09-23] MEDS ORDERED: dilTIAZem HCL 30 MG TABLET PO ONE ×3 (11:48→14:41)
[2022-09-23 12:21] LABS: EPI CELLS 8 /uL (0-25.1); HYALINE CASTS 0 /uL (0-3.1); URINE APPEARANCE CLEAR; URINE BACTERIA 85 /uL (0-1359); URINE BILIRUBIN NEGATIVE (NEGATIVE); URINE COLOR YELLOW; URINE GLUCOSE (UA) NEGATIVE (NEGATIVE); URINE KETONE TRACE (NEGATIVE); URINE LEUK ESTERASE 2+ (NEGATIVE); URINE NITRITE NEGATIVE (NEGATIVE); URINE PROTEIN NEGATIVE (NEGATIVE); URINE RBC 10 /uL (0-23.9); URINE UROBILINOGEN 0.2 mg/dL (0.2-1.0); URINE WBC 52 /uL (0-25.8)
[2022-09-23] MEDS ORDERED: ACETAMINOPHEN 325 MG TABLET (FP) PO PRN (13:17)
[2022-09-23] MEDS ORDERED: CALCIUM GLUCONATE 10% - 1,000 MG/10 ML VIAL IVPB ONE (15:30)
[2022-09-23] MEDS ORDERED: SODIUM CHLORIDE 500 ML IV STA (15:30)
[2022-09-23] MEDS ORDERED: CALCIUM GLUC IN NACL, ISO-OSM 1 GM/50 ML BAG IVPB ONE (15:36)
[2022-09-23] MEDS: dilTIAZem HCL 30 MG TABLET PO SCH (19:10)
[2022-09-23] MEDS: HEPARIN NA (PORCINE) 5,000 UNITS/ML 1ML VIAL SQ SCH (23:51)
[2022-09-24] MEDS: dilTIAZem HCL 30 MG TABLET PO SCH ×2 (00:27→06:50)
[2022-09-24] MEDS ORDERED: LACTATED RINGERS SOLUTION 1,000 ML/1,000 ML INFUS.BAG IV STA (02:27)
[2022-09-24 07:06] LABS: CHOLESTEROL 178 mg/dL (50-200)
[2022-09-24 07:07] LABS: HDL CHOLESTEROL 60 mg/dL (40-60); LDL CHOLESTEROL (ONLY SJRH) 104 mg/dL (5-100)
[2022-09-24] MEDS ORDERED: HEPARIN NA (PORCINE) 5,000 UNITS/ML 1ML VIAL ONE (09:13)
[2022-09-24] MEDS: HEPARIN NA (PORCINE) 5,000 UNITS/ML 1ML VIAL SQ SCH (09:22)
[2022-09-24 10:07] VITALS: PULSE 70; TEMP 98.6
[2022-09-24 13:49] VITALS: BP 107/66; RESP 18
[2022-09-24] MEDS ORDERED: ATORVASTATIN CA 20 MG TABLET (FP) PO SCH (22:00)
== END 2022-09-24 12:20 | disposition home or self-care (01) | DRG 201 ==
LOC: JER 10:07 → JERBED 10:39 → OBSVTOIN 13:17
PROVIDERS: ADMIT Internal Medicine; ATTEND Internal Medicine
DX: I48.0 Paroxysmal atrial fibrillation (principal); E03.9 Hypothyroidism, unspecified; E78.5 Hyperlipidemia, unspecified; Z91.148 Patient's other noncompliance with medication regimen for other reason
CPT/HCPCS: 0241U-QW; 36415; 71045-TC-FY; 80053; 80061; 81003; 84439; 84443; 84484; 85025; 85610; 85730; 87086; 93005; 93010; 99285-25; G0378; J1644